=== PATIENT | female | born 1995 | race African-American/Black ===

== ENCOUNTER 2021-10-23 14:12 | Inpatient (IN) | payer OTHER ==
[~2021-10-23] VITALS: Ht 154.9 cm; Wt 108.9 kg
[~2021-10-23 14:12] MED LIST: LIDOCAINE HCL 2%/EPINEPHRINE 1:100,000 20 ML VIAL INFIL ONE
[2021-10-23 15:25] LABS: CLARITY URINE CLEAR (CLEAR); COLOR URINE YELLOW (YELLOW); KETONES URINE 3+ (NEGATIVE); LEUKOCYTE ESTERASE URINE 1+ (NEGATIVE); NITRITE URINE NEGATIVE (NEGATIVE); OCCULT BLOOD URINE 1+ (NEGATIVE); PH URINE 6.5 (4.5-8.0); PROTEIN URINE NEGATIVE (NEGATIVE); SPECIFIC GRAVITY URINE 1.011 (1.005-1.030)
[2021-10-23] MEDS ORDERED: LIDOCAINE HCL 1% 20ML VIAL (Pyxis) INJ INFIL SCH (16:45)
[2021-10-23] MEDS ORDERED: METHYLERGONOVINE MALEATE 0.2 MG/ML IM PRN (16:45)
[2021-10-23] MEDS ORDERED: NALOXONE HCL 0.4 MG/ML 1ML VIAL IM PRN (16:45)
[2021-10-23] MEDS ORDERED: DEXT 5%/LR + PITOCIN 20UNITS/L 1,000 ML IV SCH ×2 (16:45→22:00)
[2021-10-23] MEDS ORDERED: RHO(D) IMMUNE GLOBULIN 300 MCG/SYR IM ONE (16:45)
[2021-10-23] MEDS ORDERED: CARBOPROST TROMETHAMINE 250 MCG/ML AMPUL IM PRN (16:45)
[2021-10-23] MEDS ORDERED: BUTORPHANOL TARTRATE 2 MG/ML VIAL IV PRN (16:45)
[2021-10-23] MEDS ORDERED: AMPICILLIN 2GM in NS 100ML 100 ML IV SCH (17:00)
[2021-10-23] MEDS: LACTATED RINGERS 1,000 ML IV SCH ×2 (17:44→20:18)
[2021-10-23 17:49] LABS: BASOPHILS % 0.4 % (0.0-2.0); EOSINOPHILS % 0.7 % (0.0-5.0); HEMATOCRIT. 34.3 % (36.0-48.0); HEMOGLOBIN. 11.7 g/dL (12.0-16.0); LYMPHOCYTES % 22.9 % (20.0-50.0); MEAN CORPUSCULAR HEMOGLOBIN 27.6 pg (28.0-32.0); MEAN CORPUSCULAR VOLUME 81.1 fL (81.0-99.0); MEAN PLATELET VOLUME 9.5 fl (7.4-10.4); MONOCYTES % 6.1 % (2.0-8.0); NEUTROPHILS % 69.9 % (40.0-76.0); PLATELET 211 x1000/uL (130-400); RED BLOOD CELL COUNT 4.24 mill/uL (4.2-5.4); RED CELL DISTRIBUTION WIDTH 15.5 % (11.6-14.6)
[2021-10-23 18:05] LABS: PARTIAL THROMBOPLASTIN TIME 32.4 sec (23.4-31.0); PROTHROMBIN TIME 10.3 sec (9.6-11.0)
[2021-10-23 18:21] LABS: HEPATITIS B SURFACE ANTIGEN NEGATIVE
[2021-10-23] MEDS ORDERED: ROPIVACAINE HCL/PF EPIDURAL 200 ML EPI SCH (19:30)
[2021-10-23] MEDS ORDERED: BENZOCAINE/LANOLIN/ALOE VERA SPRAY TOP PRN (22:00)
[2021-10-23] MEDS ORDERED: IBUPROFEN 400MG TABLET PO PRN (22:00)
[2021-10-23] MEDS ORDERED: RHO(D) IMMUNE GLOBULIN 300 MCG/SYR IM PRN (22:00)
[2021-10-23] MEDS ORDERED: IBUPROFEN 800MG TABLET PO PRN (22:00)
[2021-10-23 22:55] LABS: *AMPHETAMINES SCREEN URINE NEGATIVE (NEGATIVE); *BARBITURATES SCREEN URINE NEGATIVE (NEGATIVE); *BENZODIAZEPINES SCREEN URINE NEGATIVE (NEGATIVE); *COCAINE SCREEN URINE NEGATIVE (NEGATIVE); CANNABINOID URINE SCREEN NEGATIVE (NEGATIVE); METHADONE URINE SCREEN NEGATIVE (NEGATIVE); OPIATES URINE SCREEN NEGATIVE (NEGATIVE); PHENCYCLIDINE URINE SCREEN NEGATIVE (NEGATIVE)
[2021-10-23] MEDS ORDERED: AMPICILLIN 1,000 MG in SODIUM CHLORIDE 0.9% 50 ML IV SCH (23:00)
[2021-10-23 23:10] VITALS: BP 116/68
[2021-10-24 04:00] VITALS: BP 127/73
[2021-10-24 06:28] LABS: BASOPHILS % 0.2 % (0.0-2.0); EOSINOPHILS % 0.2 % (0.0-5.0); HEMATOCRIT. 34.1 % (36.0-48.0); HEMOGLOBIN. 11.4 g/dL (12.0-16.0); LYMPHOCYTES % 15.9 % (20.0-50.0); MEAN CORPUSCULAR HEMOGLOBIN 27.2 pg (28.0-32.0); MEAN CORPUSCULAR VOLUME 81.3 fL (81.0-99.0); MEAN PLATELET VOLUME 9.6 fl (7.4-10.4); MONOCYTES % 7.1 % (2.0-8.0); NEUTROPHILS % 76.6 % (40.0-76.0); PLATELET 197 x1000/uL (130-400); RED BLOOD CELL COUNT 4.19 mill/uL (4.2-5.4); RED CELL DISTRIBUTION WIDTH 15.3 % (11.6-14.6)
[2021-10-24] MEDS: FERROUS SULFATE 325MG TABLET PO SCH (07:30)
[2021-10-24] MEDS: PRENATAL VIT/FE FUMARATE/FA TABLET PO SCH (09:00)
[2021-10-24 10:00] VITALS: BP 105/65
[2021-10-24 19:30] VITALS: BP 127/84
[2021-10-25 04:00] VITALS: BP 103/63
[2021-10-25 08:00] VITALS: BP 109/73
[2021-10-25] MEDS: PRENATAL VIT/FE FUMARATE/FA TABLET PO SCH (09:20)
[2021-10-25] MEDS: FERROUS SULFATE 325MG TABLET PO SCH (09:21)
== END 2021-10-25 15:30 | disposition home or self-care (01) | DRG 560 ==
LOC: OBSVTOIN 14:12 → 8 EST LDRP 14:12 → 8EST 23:10
PROVIDERS: ADMIT Obstetrics & Gynecology; ATTEND Obstetrics & Gynecology
PROC: 10E0XZZ Delivery of Products of Conception, External Approach (ICD-10-PCS; principal; 2021-10-23)
PROC: 3E0R3BZ Introduction of Anesthetic Agent into Spinal Canal, Percutaneous Approach (ICD-10-PCS; 2021-10-23)
PROC: 00HU33Z Insertion of Infusion Device into Spinal Canal, Percutaneous Approach (ICD-10-PCS; 2021-10-23)
DX: O60.14X0 Preterm labor third trimester with preterm delivery third trimester, not applicable or unspecified (principal); Z37.0 Single live birth; D62 Acute posthemorrhagic anemia; Z20.822 Contact with and (suspected) exposure to COVID-19; Z3A.36 36 weeks gestation of pregnancy; O99.013 Anemia complicating pregnancy, third trimester
CPT/HCPCS: 36415; 76805; 76818; 80305; 81003; 85025; 86592; 86703; 86762; 86850; 86900; 87340; 87426; 99281; J0290; J2590; J2795; J3490; J7120

== ENCOUNTER 2024-12-11 02:12 | Emergency (ER) | payer MEDICAID, OTHER ==
[~2024-12-11] VITALS: Ht 154.9 cm; Wt 90.0 kg
[2024-12-11 02:24] VITALS: O2SAT 98
[2024-12-11] MEDS ORDERED: FLUC150T46 MT (03:23)
[2024-12-11] MEDS ORDERED: CLOT15CR27 TP (03:23)
[2024-12-11 03:40] VITALS: BP 116/72; PULSE 62; RESP 18; TEMP 36.5; O2SAT 100
[2024-12-11 03:54] LABS: CLARITY URINE CLEAR (CLEAR); COLOR URINE DARK YELLOW (YELLOW); GLUCOSE URINE NEGATIVE (NEGATIVE); KETONES URINE NEGATIVE (NEGATIVE); LEUKOCYTE ESTERASE URINE 1+ (NEGATIVE); NITRITE URINE POSITIVE (NEGATIVE); OCCULT BLOOD URINE 1+ (NEGATIVE); PH URINE 5.5 (4.5-8.0); PROTEIN URINE NEGATIVE (NEGATIVE); SPECIFIC GRAVITY URINE 1.022 (1.005-1.030); UROBILINOGEN URINE 0.2 E.U./dL (0.2-1.0)
[2024-12-11 04:11] LABS: BACTERIA URINE TRACE; SQUAMOUS EPITHELIAL CELL URINE FEW /lpf (RARE/1+)
== END 2024-12-11 04:00 | disposition home or self-care (01) ==
LOC: ER 02:12
DX: L29.2 Pruritus vulvae (principal); Z79.899 Other long term (current) drug therapy
CPT/HCPCS: 81003; 81025; 99283